=== PATIENT | female | born 1945 | race Caucasian/White ===

== ENCOUNTER → 2016-09-06 | Outpatient (CLI) | payer OTHER | LOC: BMCIMAGING 10:23 | PROVIDERS: ATTEND Midwife | DX: N95.0 Postmenopausal bleeding (principal) ==

== ENCOUNTER → 2017-01-06 | Outpatient (CLI) | payer OTHER | LOC: BMCIMAGING 14:55 | PROVIDERS: ATTEND Internal Medicine | DX: R93.8 Abnormal findings on diagnostic imaging of other specified body structures (principal); N95.0 Postmenopausal bleeding ==

== ENCOUNTER → 2017-05-07 | Outpatient (CLI) | payer OTHER | LOC: FIMAGING 09:21 | PROVIDERS: ATTEND Surgery | DX: Z09 Encounter for follow-up examination after completed treatment for conditions other than malignant neoplasm (principal); R22.2 Localized swelling, mass and lump, trunk ==